=== PATIENT | female | born 1950 | race Caucasian/White ===

== ENCOUNTER 2023-03-18 10:59 | Emergency (ER) | payer MEDICARE, SELFPAY ==
--- NOTE | ~2023-03-18 | XR_ITS ---
EXAMINATION: XR chest 2V DATE: 03/18/2023 11:59 INDICATION: Cough and wheezing and shortness of breath. TECHNIQUE: Frontal and lateral views of the chest were obtained. COMPARISON: None. FINDINGS: There is mild atelectasis in left lower lung zone. No pleural effusion or pneumothorax. The heart size is normal. There are prominent paracardial fat pads. IMPRESSION: 1. Mild atelectasis in left lower lung zone. Reviewed, dictated and finalized at location A.
[2023-03-18 11:20] VITALS: BP 114/82; PULSE 89; RESP 16; TEMP 36.6; O2SAT 95
--- NOTE | 2023-03-18 11:44 | ED.URI ---
HPI - URI/Sore Throat General Chief Complaint: Upper Respiratory Infection Stated Complaint: cough,wheezing Time Seen by Provider: 03/18/23 11:32 Source: patient and RN notes reviewed Mode of arrival: ambulatory Limitations: no limitations History of Present Illness HPI Narrative: Patient presents today complaining of cough x1 +weeks with shortness of breath and postnasal drip. Denies fever. Denies history of asthma or COPD. She does have an albuterol inhaler that she uses occasionally, but states she feels that it was irritating her throat and causing her to cough more. She has also been taking ibuprofen and Robitussin DM. She is a nonsmoker. Related Data Home Medications Medication Instructions Recorded Confirmed albuterol sulfate 90 mcg/actuation 90 mcg inhalation Q4-6H PRN 03/18/23 03/18/23 aerosol inhaler Wheezing carvedilol 3.125 mg tablet 3.125 mg PO DAILY 03/18/23 03/18/23 lisinopril 10 mg tablet 10 mg PO DAILY 03/18/23 03/18/23 pantoprazole 40 mg tablet,delayed 40 mg PO DAILY 03/18/23 03/18/23 release rosuvastatin 40 mg tablet 40 mg PO DAILY 03/18/23 03/18/23 sertraline 100 mg tablet 100 mg PO DAILY 03/18/23 03/18/23 Allergies Allergy/AdvReac Type Severity Reaction Status Date / Time Sulfa (Sulfonamide Allergy Unknown Unknown Verified 03/18/23 11:18 Antibiotics) Review of Systems Review of Systems: CONSTITUTIONAL: Denies body aches, fever, chills, or sweats. EYES: Denies visual changes, redness, or discharge. ENT: Denies rhinorrhea, congestion, sore throat, or otalgia.+ postnasal drip CARDIOVASCULAR: Denies chest pain, palpitations, or edema. RESPIRATORY: + cough, shortness of breath GASTROINTESTINAL: Denies abdominal pain, nausea, vomiting, or diarrhea. GENITOURINARY: Denies dysuria or hematuria. SKIN: Denies rash, itching, or wounds. MUSCULOSKELETAL: Denies back pain, joint pain, or myalgia. NEUROLOGIC: Denies headache, numbness, tingling, or weakness. PSYCH: Denies depression or anxiety. PMFSH Comments At time of signature, I have reviewed and agree with nursing past medical, surgical, social and family history unless otherwise noted. Please see nursing chart for further information. There is no relevant family history pertinent to the presenting complaint Exam Narrative: GENERAL: Well-appearing, well-nourished, and in no acute distress. HEAD: Normocephalic, atraumatic. EYES: EOMI. No redness or drainage. Conjunctivae normal. ENT: Mucous membranes pink and moist. Nares clear. No rhinorrhea. TMs normal bilaterally. Throat normal. Uvula midline. Voice is slightly hoarse NECK: Normal AROM. Supple. No lymphadenopathy. CHEST: No respiratory distress. Clear to auscultation. Frequent harsh cough noted. HEART: Regular rate and rhythm. No murmur appreciated. Normal peripheral pulses. EXTREMITIES: Normal range of motion. No edema. SKIN: Warm, dry, no rash. Capillary refill normal. Normal skin turgor. NEURO: No focal deficits. Alert and oriented x3. Gait steady. PSYCH: Normal affect. No signs of depression or anxiety. Course Course Level of Care: Express Care Visit Vital Signs Vital signs: Vital Signs Temperature 98 F 03/18/23 11:20 Pulse Rate 89 03/18/23 11:20 Respiratory Rate 16 03/18/23 11:20 Blood Pressure 114/82 03/18/23 11:20 Pulse Oximetry 95 03/18/23 11:20 Temperature 98 F 03/18/23 11:20 Pulse Rate 89 03/18/23 11:20 Respiratory Rate 16 03/18/23 11:20 Blood Pressure 114/82 03/18/23 11:20 Pulse Oximetry 95 03/18/23 11:20 Reviewed. Pt has been instructed to follow up with her PCP regarding her elevated blood pressure today. MDM - URI/Sore Throat MDM Narrative Medical decision making narrative: X-rays negative for pneumonia. Since patient's symptoms have been going on for a week half normal treat her with azithromycin and prednisone. Instructed her to use her albuterol inhaler more frequently if needed for shortness of b
== END 2023-03-18 12:19 | disposition home or self-care (01) ==
PROVIDERS: Emergency Provider Nurse Practitioner; PCP Family Medicine
DX: J40 Bronchitis, not specified as acute or chronic (principal); J06.9 Acute upper respiratory infection, unspecified; I42.9 Cardiomyopathy, unspecified; E78.00 Pure hypercholesterolemia, unspecified; I10 Essential (primary) hypertension; K21.9 Gastro-esophageal reflux disease without esophagitis
CPT/HCPCS: 71046; 99203; G0463

== ENCOUNTER 2024-09-09 17:01 | Emergency (ER) | payer MEDICARE, SELFPAY ==
--- NOTE | ~2024-09-09 | XR_ITS ---
XR ankle LT min 3V DATE: 09/09/2024 17:48 INDICATION: Injury, pain TECHNIQUE: 4 views COMPARISON: None FINDINGS: No fracture or dislocation the ankle or disruption of the ankle mortise is detected. No periosteal reaction or bone destruction. IMPRESSION: No fracture or dislocation Reviewed, dictated and finalized at location A. [employer] IMPRESSION: No fracture or dislocation
--- NOTE | ~2024-09-09 | XR_ITS ---
[id number] DATE: 09/09/2024 17:48 INDICATION: Injury, pain TECHNIQUE: AP and crosstable lateral views of left knee COMPARISON: None FINDINGS: No fracture or dislocation or joint effusion. Joint spaces are well preserved. No periostea l reaction or bone destruction. No radiopaque intra-articular loose body or chondrocalcinosis. IMPRESSION: Negative left knee Reviewed, dictated and finalized at Location [facility]. Reviewed, dictated and finalized at location A. [employer] IMPRESSION: Negative left knee
[2024-09-09 17:13] VITALS: BP 137/81; PULSE 87; RESP 16; TEMP 36.4; O2SAT 96
--- NOTE | 2024-09-09 18:19 | ED_ITS ---
HPI - Extremity Injury (Lower) General Chief Complaint: Extremity Injury, Lower Stated Complaint: Left Leg/Knee Pain/Head Pain Time Seen by Provider: 09/09/24 17:15 Source: patient Mode of arrival: ambulatory Limitations: no limitations History of Present Illness HPI Narrative: 74-year-old female presents with complaint of pain to left knee and left ankle. Patient has swelling and bruising to left ankle. Patient was carrying laundry and tripped stairs and fell and landing area. Denies LOC. pain worse when bearing weight on to left ankle. All systems reviewed and negative except as noted above. Related Data Home Medications Medication Instructions Recorded Confirmed albuterol sulfate 90 mcg/actuation 90 mcg inhalation Q4-6H PRN 03/18/23 09/09/24 aerosol inhaler Wheezing carvedilol 3.125 mg tablet 3.125 mg PO DAILY 03/18/23 09/09/24 lisinopril 10 mg tablet 10 mg PO DAILY 03/18/23 09/09/24 pantoprazole 40 mg tablet,delayed 40 mg PO DAILY 03/18/23 09/09/24 release rosuvastatin 40 mg tablet 40 mg PO DAILY 03/18/23 09/09/24 sertraline 100 mg tablet 100 mg PO DAILY 03/18/23 09/09/24 Allergies Allergy/AdvReac Type Severity Reaction Status Date / Time Sulfa (Sulfonamide Allergy Unknown Unknown Verified 09/09/24 17:54 Antibiotics) Review of Systems Review of Systems: CONSTITUTIONAL: Denies fever, chills, or sweats. EYES: Denies visual changes, redness, or discharge. ENT: Denies rhinorrhea, congestion, sore throat, or otalgia. CARDIOVASCULAR: Denies chest pain, palpitations, or edema. RESPIRATORY: Denies cough or dyspnea. GASTROINTESTINAL: Denies abdominal pain, nausea, vomiting, or diarrhea. GENITOURINARY: Denies dysuria or hematuria. SKIN: Denies rash or itching. MUSCULOSKELETAL: Denies back pain or myalgia. Reports pain to left knee and left ankle with swelling. NEUROLOGIC: Denies headache, numbness, or weakness. PSYCHIATRIC: Denies anxiety or depression. All other systems reviewed are negative, except as documented in HPI. [facility] Comments At time of signature, agree with nursing past medical, surgical, social and family history. There is no relevant family history pertinent to the presenting complaint. Exam Narrative: GENERAL: This is a well-nourished, well-developed patient, in no apparent distress. HEAD: normocephalic, atraumatic. EYES: PERRL. Sclera clear/white. Vision is grossly intact. EARS: External ears normal NOSE: External nose normal NECK: Neck supple, non-tender without lymphadenopathy, masses or thyromegaly. CARDIOVASCULAR: Regular rate and rhythm without murmurs, gallops, or rubs. RESPIRATORY: Clear to auscultation. Breath sounds equal bilaterally. No wheezes, rales, or rhonchi. SKIN: warm, Dry, intact with no suspicious lesions or rash, good texture and turgor. NEURO: awake, alert, and oriented to person, place and time. There were no obvious focal neurologic abnormalities. EXTREMITIES: tenderness to anterior aspect L knee. no swelling or deformity. ROM intact. tenderness to lateral and medial aspect L ankle, bruising and swelling to lateral aspect. ROM decreased, distal NV intact. Course Course Level of Care: Express Care Visit Vital Signs Vital signs: Vital Signs Temperature 36.4 C 09/09/24 17:13 Pulse Rate 87 09/09/24 17:13 Respiratory Rate 16 09/09/24 17:13 Blood Pressure 137/81 09/09/24 17:13 Pulse Oximetry 96 09/09/24 17:13 Temperature 36.4 C 09/09/24 17:13 Pulse Rate 87 09/09/24 17:13 Respiratory Rate 16 09/09/24 17:13 Blood Pressure 137/81 09/09/24 17:13 Pulse Oximetry 96 09/09/24 17:13 Reviewed MDM - Extremity Injury (Lower) MDM Narrative Medical decision making narrative: Knee and left ankle x-ray negative for fracture. Discussed results with patient. Jose wrap placed to left knee and left ankle. Recommend rest, elevation, ice, compression. Recommend Tylenol every 6-8 hours. Recommend follow-up with primary care physician in the next 2-3 weeks if pain is not improving. Patient is aware of diagnosis, understands and agrees to treatment plan. Anticipatory guidance given. Patient agrees to follow-up as directed and is aware of reasons to seek care at the emergency department. Portions of this record may have been created with voice recognition software Differential Diagnosis Differential diagnosis: Likely ankle sprain and strain and other (Left knee contusion, left knee sprain, left ankle fracture) Imaging Data My impression: Agree with radiologist Radiologist's impression: XR ankle LT min 3V DATE: 09/09/2024 17:48 INDICATION: Injury, pain TECHNIQUE: 4 views COMPARISON: None FINDINGS: No fracture or dislocation the ankle or disruption of the ankle mortise is detected. No periosteal reaction or bone destruction. IMPRESSION: No fracture or dislocation Discharge Plan Discharge Clinical Impression: Contusion of knee, left Qualifiers: Encounter type: initial encounter Qualified Code(s): S80.02XA - Contusion of left knee, initial encounter Left ankle sprain Qualifiers: Encounter type: initial encounter Involved ligament of ankle: unspecified ligament Qualified Code(s): S93.402A - Sprain of unspecified ligament of left ankle, initial encounter Patient Disposition: Home, Self-Care Condition: Stable Instructions: Ankle Sprain (ED) Additional Instructions: The x-ray of your left ankle and left knee were negative for fracture. Take Tylenol every 6-8 hours as needed for pain. Elevate when at rest. Apply ice as needed for pain. Wear Jose wrap to compress swelling and provide support. Avoid activities that increase pain to left knee and left ankle. Follow-up with your doctor if pain is not improving. Prescriptions: No Action sertraline 100 mg tablet 100 mg PO DAILY carvedilol 3.125 mg tablet 3.125 mg PO DAILY pantoprazole 40 mg tablet,delayed release (DR/EC) 40 mg PO DAILY lisinopril 10 mg tablet 10 mg PO DAILY albuterol sulfate 90 mcg/actuation HFA aerosol inhaler 90 mcg INHALATION Q4-6H PRN (Reason: Wheezing) rosuvastatin 40 mg tablet 40 mg PO DAILY Follow-up/Referrals: Mychal,MD Quinn [Primary Care Provider] - Time of Disposition: 18:24
== END 2024-09-09 18:39 | disposition home or self-care (01) ==
PROVIDERS: Emergency Provider Nurse Practitioner Family; PCP Family Medicine
DX: S80.02XA Contusion of left knee, initial encounter (principal); W10.9XXA Fall (on) (from) unspecified stairs and steps, initial encounter; S93.402A Sprain of unspecified ligament of left ankle, initial encounter; I42.9 Cardiomyopathy, unspecified; E78.00 Pure hypercholesterolemia, unspecified; I10 Essential (primary) hypertension; K21.9 Gastro-esophageal reflux disease without esophagitis
CPT/HCPCS: 73560; 73610; 99214; G0463

== ENCOUNTER 2025-01-10 10:07 | Outpatient (CLI) | payer MEDICARE, SELFPAY ==
--- NOTE | ~2025-01-10 | MR_ITS ---
EXAMINATION: MR brain/brain stem wo con DATE: 01/10/2025 11:32 INDICATION: Dizziness. TECHNIQUE: Magnetic resonance imaging (MRI) of the brain and brainstem was performed without intraven ous contrast. COMPARISON: None. FINDINGS: There are scattered areas of nonspecific increased T2-weighted signal intensity in the cere bral white matter, which is within normal limits for the patient's age. There is no intracranial hemo rrhage, acute infarction, or abnormal intracranial mass lesion. The ventricles are normal in size. Th e orbits are normal. The paranasal sinuses are clear. The mastoid air cells are normal. IMPRESSION: 1. Normal aging brain. Reviewed, dictated and finalized at location A. IMPRESSION: 1. Normal aging brain.
--- OUTSIDE RECORDS SUMMARY | 2025-01-10 11:31 | XMS_ITS | Clinical Summary ---
Author Organization [facility] Address [address] [place] [address] Care Team Providers Care Engineering Operator Name Role Phone Quinn Horta MD Primary Care Provider Mainor Julian MD Unavailable [phone] Edna Lemus MD Unavailable Allergies Active Allergy Reactions Criticality Noted Date Comments Shellfish Containing Products Diarrhea,Vomiting Low 10/31/2018 Sulfa (Sulfonamide Antibiotics) Hives,Shortness of breath,Redness High 10/31/2018 shaky Medications sertraline (ZOLOFT) 100 mg tablet 10/25/2018 Active carvedilol (COREG) 3.125 mg tablet Take 1 tablet (3.125 mg total) by mouth 2 (two) times a day with meals Active lisinopril (PRINIVIL,ZESTR IL) 10 mg tablet Take 1 tablet (10 mg total) by mouth daily Active calcium carbonate-vitam in D3 (CALTRATE 600 + D) 1500 mg (600 mg elemental) -400 units per tablet Take 1 tablet by mouth daily Active aspirin 81 mg tablet Take 1 tablet (81 mg total) by mouth daily Active pantoprazole DR (PROTONIX) 40 mg EC tablet Take 1 tablet (40 mg total) by mouth daily Active rosuvastatin (CRESTOR) 40 mg tablet Take 1 tablet (40 mg total) by mouth daily 11/11/2021 Active loperamide (IMODIUM A-D) 2 mg tablet Take 1 tablet (2 mg total) by mouth 4 (four) times a day as needed for diarrhea Active bacillus coagulans-inuli n (Probiotic with Prebiotic) 1 billion-250 cell-mg capsule Take 1 capsule by mouth Allign Active Active Problems Problem Noted Date Diagnosed Date Diarrhea 07/30/2021 Assessment & Plan (01/14/2022 10:07 AM CDT): Worsening diarrhea. May be due to IBS versus microscopic colitis. There is family history of Crohn's disease. I will recommend colonoscopy with random biopsies. The pathology is benign, for the issue being treated for IBS is possibly with rifaximin or Viberzi. The plan was discussed with the patient's daughter who accompanied her for the visit. Assessment & Plan (07/31/2021 2:50 PM CDT): Worsening. May be related to irritable bowel syndrome. Microscopic colitis possibly related to sertraline was also considered. C diff toxin associated colitis as well as infectious colitis considered. Week obtain stools for C diff toxin assay as well as culture. She was advised to avoid taking Zoloft for 2 weeks and keep a journal of her symptoms and food intake. If symptoms persist then she will be recommended to have colonoscopy with random biopsies. Belching symptom 07/30/2021 Assessment & Plan (01/14/2022 10:03 AM CDT): Symptoms persist depending on type of food she consumes and alcohol. Counseled about diet. Assessment & Plan (07/31/2021 2:51 PM CDT): Persistent. Likely due to esophageal reflux disease, gas. She was counseled about her diet and specifically advised to cut down on excessive green vegetables, dairy products and carbonated beverages. Therapeutic trial of Neurontin 100 mg t.i.d. Check H pylori stool antigen. 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 Assessment & Plan (07/31/2021 2:50 PM CDT): The patient's most recent colonoscopy was in 2019 revealed no residual lesion. Since the original tumor was less than 2 cm and was completely removed, no additional surveillance is indicated at this time. This plan of care was discussed with the patient and her daughter the agreed and verbalized understanding. Benign carcinoid tumor of the rectum 12/01/2018 Overview (12/01/2018): Added automatically from request for surgery [id number] Primary malignant neuroendocrine tumor of rectum 12/01/2018 Overview (12/01/2018): Added automatically from request for surgery [id number] Epigastric pain 11/30/2018 Assessment & Plan (11/30/2018 9:11 PM POLYSTYRENE MOLDING MACHINE TENDER): Symptomatic. Likely due to gastroesophageal reflux disease although peptic ulcer disease cannot be entirely ruled out. Continue PPI. Esophagogastroduodenoscopy is recommended for further evaluation. Gastroesophageal reflux disease 11/30/2018 Assessment & Plan (11/30/2018 9:11 PM POLYSTYRENE MOLDING MACHINE TENDER): Symptomatic. Patient was counseled about lifestyle modifications including eating habits, avoidance of fatty foods, elevation of head of bed. Esophagogastroduodenoscopy is recommended and scheduled. Patient was advised to continue proton pump inhibitor. Benign carcinoid tumor of rectum 11/30/2018 Primary malignant neuroendocrine neoplasm of rec erendira 10/25/2018 Assessment & Plan (11/30/2018 9:19 PM POLYSTYRENE MOLDING MACHINE TENDER): Newly diagnosed. Found on routine colonoscopy. Repeat Flexible sigmoidoscopy with narrow band image revealed few spots that were biopsied and benign. 5HIAA level is pending. Chromoganin A level is high (654), which may be related to PPI use and other factors. Plan Colonoscopy and EGD are recommended. F/U urinary 5HIAA levels. Care plan discussed with daughter. They both asked lots of questions regarding the diagnosis and prognosis. I reassured the patient that typically the rectal neuroendocrine tumors have better prognosis compared to the jejunal lesions. Total time spent for the visit was 45 min and greater than 50% of THE time was spent on counseling and discussing the disease diagnosis modalities, prognosis and required follow-up Immunizations Immunization Administration Dates Next Due Influenza, Quadrivalent, Hig h Dose, Preservative Free, Intrr 09/04/2020 Influenza, Quadrivalent, Split, Intramuscular ,08/05/2017 Influenza, Trivalent, High D ose, Split, Preservative Free, Intramuscular 09/04/2019 Moderna SARS-CoV-2 Monovalent Vaccination (12+ Y RS) 01/17/2021,12/20/2020 Pneumococcal Polysaccharide PPV23 09/04/2020 TD Preservative Free 11/08/2016 Surgical History Surgery Date Site/Laterality Comments CARDIAC CATHETERIZATION OTHER SURGICAL HISTORY exploratory laparotomy APPENDECTOMY COLONOSCOPY last screening , high risk colon CA COLONOSCOPY 12/17/2019 - 01/16/2020 COLONOSCOPY 02/19/2022 last screening 2019, change in bowel habits Medical History Medical History Date Comments Anxiety CHF (congestive heart failure) (HCC) Hypertension Hypercholesteremia GERD (gastroesophageal reflux disease) Osteopenia Arthritis Family History Medical History Relation Name Comments Asthma Brother lung cancer Cancer Brother lung cancer Heart disease Brother lung cancer Stroke Brother lung cancer COPD Sister Diabetes Sister Heart disease Sister Relation Name Status Comments Brother lung cancer Sister Social History Tobacco Use Types Packs/Day Years Used Date Smoking Tobacco: Never Smokeless Tobacco: Never Alcohol Use Standard Drinks/Week Comments Yes 7 (1 standard drink = 0.6 oz pur e alcohol) weekly AUDIT-C Answer Date Recorded Q1: How often do you have a drink containing alc ohol? 2-4 times a month 02/19/2022 Q2: How many drinks containi ng alcohol do you have on a typical day when you are drinking? 1 or 2 02/19/2022 Q3: How often do you have si x or more drinks on one occasion? Never 02/19/2022 PHQ-2 Answer Date Recorded PHQ-2 Total Score (If total score is 3 or more points, staff should administer the PHQ-9) 0 07/30/2021 Personal Safety Answer Date Recorded Getting School Help Needed Not on file 10/02 Comments No Sex and Gender Information Value Date Recorded Sex Assigned at Not on file Legal Sex Female 12:01 PM POLYSTYRENE MOLDING MACHINE TENDER Gender Identity Not on file Sexual Orientation Not on file Obstetrics History Last Filed Vital Signs Vital Sign Reading Time Taken Comments Blood Pressure 140/83 09/07/2022 10:24 AM POLYSTYRENE MOLDING MACHINE TENDER Pulse 67 09/07/2022 10:24 AM POLYSTYRENE MOLDING MACHINE TENDER Temperature 36.4 C (97.6 F) 09/07/2022 10:24 AM POLYSTYRENE MOLDING MACHINE TENDER Respiratory Rate 20 09/07/2022 10:24 AM POLYSTYRENE MOLDING MACHINE TENDER Oxygen Saturation 96% 09/07/2022 10:24 AM POLYSTYRENE MOLDING MACHINE TENDER Inhaled Oxygen Concentration - - Weight 68 kg (150 lb) 06/06/2024 8:36 AM CDT Height 152.4 cm (5') 06/06/2024 8:36 AM CDT Body Mass Index 29.29 06/06/2024 8:36 AM CDT Plan of Treatment Health Maintenance Due Date Last Done Comments Fall Risk Assessment 1950 Hepatitis C Screening 1950 Hepatitis B Screening 1966 Zoster Vaccine (1 of 2) 1998 Well Visit 65+ 2013 DTaP/Tdap/Td Vaccine (1 - Tdap) 11/09/2016 7 Pneumococcal vaccine 65+ (2 of 2 - PCV) 09/04/2021 09/04/2020 Depression Screening 07/30/2022 07/30/2021, 11/30/19 19 Covid-19 Vaccine (3 - 2023-2 5 season) 2024 01/17/2021, 12/20/2020 Influenza Vaccine (#1) 2024 , 09/04/2019, 08/05/2018, Additional history exists Osteoporosis Screening-Bone Density Scan 11/17/2025 11/17/2023 Colon Cancer Screening-CT Colonography Discontinued 02/19/2022, 12/25/2019, 01/02/2019 Colon Cancer Screening-Colonoscopy Discontinued 02/19/2022, 12/25/2019, 01/02/2019 Colon Cancer Screening-DNA Stool Discontinued 02/19/2022, 12/25/2019, 01/02/2019 Colon Cancer Screening-FIT Discontinued 02/19, 12/25/2019, 01/02/2019 Colon Cancer Screening-FOBT Discontinued 02/2022, 12/25/2019, 01/02/2019 Colon Cancer Screening-Sigmoidoscopy Discontinued 02/19/2022, 12/25/2019, 01/02/2019 Colorectal Cancer Screening Discontinued Breast Cancer Screening-Mammogram Discontinued 11/17/2023, 11/17/2023, 09/25/2022, Additional history exists Procedures Procedure Name Priority Date/Time Associated Diagnosis Comments COLONOSCOPY 02/19/2022 7:59 AM CDT from Last 3 Months or Most Recently Relevant to Health Maintenance Results * COLONOSCOPY (02/19/2022 7:59 AM CDT) Anatomical Region Laterality Modality Other Narrative Procedure Note Edna Lemus MD - 02/19/2022 7:59 AM CDT [facility] Endoscopy [facility] Patient Name: Wilda Bourne Procedure Date: 02/19/2022 7:59 AM Date of : 1950 Admit Type: Outpatient Age: 71 Gender: Female Note Status: Finalized Attending MD: Edna Lemus M.D. Procedure Date: 02/19/2022 Procedure: Colonoscopy Indications: Chronic diarrhea, Malignant carcinoid tumor of the rectum Providers: Edna Lemus M.D., Anya Root (Anesthesia Staff), Gloria Rojo RN Referring MD: Quinn Horta M.D. Medicines: Monitored Anesthesia Care Complications: No immediate complications. Estimated Blood Loss: Estimated blood loss was minimal. Procedure: Pre-Anesthesia Assessment: - Prior to the procedure, a History and Physicalwas performed, and patient medications and allergieswere reviewed. The patient is competent. The risks and benefits of the procedure and the sedation optionsand risks were discussed with the patient. Allquestions were answered and informed consent was obtained. Patient identification and proposed procedure were verified by the physician, the nurse and the clinical trials manager in the procedure room. Mental Status Examination: alert and oriented. AirwayExamination: normal oropharyngeal airway and neck mobility. Respiratory Examination: clear to auscultation. CV Examination: normal. Prophylactic Antibiotics: The patient does not require prophylactic antibiotics. Prior Anticoagulants: The patient has taken no anticoagulant or antiplatelet agents. ASA Grade Assessment: II - A patient with mild systemicdisease. After reviewing the risks and benefits, the patient was deemed in satisfactory condition to undergo the procedure. The anesthesia plan was to use monitored anesthesia care (MAC). Immediately prior to administration of medications, the patient was re-assessed for adequacy to receive sedatives. The heart rate, respiratory rate, oxygen saturations, blood pressure, adequacy of pulmonary ventilation,and response to care were monitored throughout the procedure. The physical status of the patient was re-assessed after the procedure. - The risks and benefits of the procedure and the sedation options and risks were discussed with the patient. All questions were answered and informed consent was obtained. After I obtained informed consent, the scope was passed under direct vision. Throughout theprocedure, the patient's blood pressure, pulse, and oxygen saturations were monitored continuously. The scopewas passed under direct vision. The Colonoscope was introduced through the anus and advanced to the the cecum, identified by appendiceal orifice andileocecal valve. The colonoscopy was performed without difficulty. The patient tolerated the procedurewell. The quality of the bowel preparation was adequate.The bowel preparation used was bisacodyl tablets viasplit dose instruction. Findings: Scattered small and large-mouthed diverticula were found in theentire colon. Normal mucosa was found in the entire colon. Biopsies for histologywere taken with a cold forceps from the descending colon for evaluation of microscopic colitis. Estimated blood loss was minimal. The exam was otherwise without abnormality on direct and retroflexion views. Impression: - Diverticulosis in the entire examined colon. - Normal mucosa in the entire examined colon.Biopsied. - The examination was otherwise normal on directand retroflexion views. Recommendation: - Await pathology results. - Continue present medications. - Repeat colonoscopy in 3 years for surveillance. Procedure Code(s): --- Professional --- 13437, Colonoscopy, flexible; with biopsy, singleor multiple Diagnosis Code(s): --- Professional --- K52.9, Noninfective gastroenteritis and colitis, unspecified C7A.026, Malignant carcinoid tumor of the rectum K57.30, Diverticulosis of large intestine without perforation or abscess without bleeding CPT copyright 2020 [employer]. All rights reserved. The codes documented in this report are preliminary and upon reception reviewmay be revised to meet current compliance requirements. Electronically signed by Edna Lemus M.D. Edna Lemus M.D. 02/19/2022 8:32:27 AM Number of Addenda: 0 Note Initiated On: 02/19/2022 7:59 AM Edna Lemus MD ENDOSCOPY PROCEDURES Fi nal Result from Last 3 Months or Most Recently Relevant to Health Maintenance Insurance MEDICARE [facility] MEDICARE [facility] MEDICARE [facility] Care Teams Engineering Operator Relationship Specialty Start Date End Date Quinn Horta MD PCP - General Family Medicine 09/30/18 Mainor Julian MD Referring Physician Family Medicine 11/21/18 Edna Lemus MD Food Preservation Scientist Gastroenterology 07/09/21
--- OUTSIDE RECORDS SUMMARY | 2025-01-10 11:31 | XMS_ITS | Clinical Summary ---
Author Organization [facility] Address [address] [address] Care Team Providers Care School Bus Inspector Name Role Phone Unavailable Primary Care Provider Unavailabl e Source Comments [facility],non-owned Affiliates and Associated Physician Practices is amultiple site organization consisting of ambulatory clinics and hospital sitesin [place], [place], [place] and [place]. This disclosure is being madepursuant to the Care Everywhere program and may not contain all information available regarding this patient. Last updated 18.[facility] Social History Tobacco Use Types Packs/Day Years Used Date Smoking Tobacco: Never Assessed Sex and Gender Information Value Date Recorded Sex Assigned at Not on file Gender Identity Not on file Sexual Orientation Not on file Plan of Treatment Health Maintenance Due Date Last Done Comments BONE DENSITY TESTING 1950 HEPATITIS C SCREENING 04/14/1966 DTAP/TDAP/TD VACCINES (1 - Tdap) 1967 PNEUMOCOCCAL VACCINE 50+ (1 of 1 - PCV) 1998 ZOSTER VACCINE (1 of 2) 1998 Respiratory Syncytial Virus (RSV) Vaccine Pt: or over 60 yrs (1 - 1-dose 75+ series) 2023 COVID-19 VACCINE ( - 2023-2 5 season) 2024 INFLUENZA VACCINE (#1) 2024 DEPRESSION SCREENING 10/18/2024 HEPATITIS B VACCINE Aged Out No longe r eligible based on patient's age to complete this topic HIB VACCINE Aged Out No longer eligi ble based on patient's age to complete this topic HPV VACCINE Aged Out No longer eligi ble based on patient's age to complete this topic MENINGOCOCCAL (Group B) VACC INE SHARED DECISION-MAKING Aged Out No longer eligibl e based on patient's age to complete this topic MENINGOCOCCAL GROUPS A/C/Y/W VACCINE Aged Out No longer eligible b ased on patient's age to complete this topic
--- OUTSIDE RECORDS SUMMARY | 2025-01-10 11:31 | XMS_ITS | Referral Summary ---
Author Organization [facility] Address [address] [place] [address] Care Team Providers Care Grounds Maintenance Worker Name Role Phone Quinn Horta MD Primary Care Provider [phone] Mainor Julian MD Unavailable [phone] Edna Lemus MD Unavailable Allergies Active Allergy [...] (12/11/2019): Added automatically from request for surgery [id number] Assessment & Plan (01/14/2022 10:11 AM CDT): [...] (12/01/2018): Added automatically from request for surgery [id number] Primary malignant neuroendocrine tumor of rectum 12/01/2018 Overview (12/01/2018): Added automatically from request for surgery [id number] Epigastric pain 11/30/2018 Assessment & Plan (11/30/2018 9:11 PM EXECUTIVE RECRUITER): Symptomatic. Likely due to gastroesophageal reflux disease although peptic ulcer disease cannot be entirely ruled out. Continue PPI. Esophagogastroduodenoscopy is recommended for further evaluation. Gastroesophageal reflux disease 11/30/2018 Assessment & Plan (11/30/2018 9:11 PM EXECUTIVE RECRUITER): Symptomatic. Patient was counseled about lifestyle modifications including eating habits, avoidance of fatty foods, elevation of head of bed. Esophagogastroduodenoscopy is recommended and scheduled. Patient was advised to continue proton pump inhibitor. Benign carcinoid tumor of rectum 11/30/2018 Primary malignant neuroendocrine neoplasm of rec erendira 10/25/2018 Assessment & Plan (11/30/2018 9:19 PM EXECUTIVE RECRUITER): Newly diagnosed. Found on routine colonoscopy. Repeat [...] Polysaccharide PPV23 09/04/2020 TD Preservative Free 11/08/2016 Social History Tobacco Use Types Packs/Day Years [...] on file Legal Sex Female 12:01 PM EXECUTIVE RECRUITER Gender Identity Not on file Sexual Orientation Not on file Last Filed Vital Signs Vital Sign Reading Time Taken Comments Blood Pressure 140/83 09/07/2022 10:24 AM EXECUTIVE RECRUITER Pulse 67 09/07/2022 10:24 AM EXECUTIVE RECRUITER Temperature 36.4 C (97.6 F) 09/07/2022 10:24 AM EXECUTIVE RECRUITER Respiratory Rate 20 09/07/2022 10:24 AM EXECUTIVE RECRUITER Oxygen Saturation 96% 09/07/2022 10:24 AM EXECUTIVE RECRUITER Inhaled Oxygen Concentration - - Weight 68 kg (150 lb) 06/06/2024 8:36 AM CDT Height 152.4 cm (5') 06/06/2024 8:36 AM CDT Body Mass Index 29.29 06/06/2024 8:36 AM CDT Plan of Treatment Not on file Procedures Procedure Name Priority Date/Time Associated Diagnosis Comments COLONOSCOPY 02/19/2022 7:59 AM CDT from Last 3 Months or Most Recently Relevant to Health Maintenance Results * COLONOSCOPY (02/19/2022 7:59 AM CDT) Anatomical Region Laterality Modality Other Narrative Procedure Note Edna Lemus MD - 02/19/2022 7:59 AM CDT [facility] Endoscopy Lab Patient Name: Wilda Bourne Procedure [...] by the physician, the nurse and the staff development educator in the procedure room. Mental Status Examination: [...] for surveillance. Procedure Code(s): --- Professional --- 93255, Colonoscopy, flexible; with biopsy, singleor multiple Diagnosis Code(s): --- Professional --- K52.9, Noninfective gastroenteritis and colitis, unspecified C7A.026, Malignant carcinoid tumor of the rectum K57.30, Diverticulosis of large intestine without perforation or abscess without bleeding CPT copyright 2020 [employer]. All rights reserved. The codes documented in this report are preliminary and upon cytopathologist reviewmay be revised to meet current compliance requirements. Electronically signed by Edna Lemus M.D. Edna Lemus M.D. 02/19/2022 8:32:27 AM Number of Addenda: 0 Note Initiated On: 02/19/2022 7:59 AM Edna Lemus MD ENDOSCOPY PROCEDURES Fi nal Result from Last 3 Months or Most Recently Relevant to Health Maintenance Insurance MEDICARE [facility] MEDICARE [facility] MEDICARE [facility] Care Teams Grounds Maintenance Worker Relationship Specialty Start Date End Date Quinn Horta MD PCP - General Family Medicine 09/30/18 Mainor Julian MD Referring Physician Family Medicine 11/21/18 Edna Lemus MD Retail Marketing Specialist Gastroenterology 07/09/21
--- OUTSIDE RECORDS SUMMARY | 2025-01-10 11:31 | XMS_ITS | Clinical Summary ---
Author Organization [facility] Address [address] [place] [id number] Care Team Providers Care Legal Investigator Name Role Phone Quinn Horta MD Primary Care Provider Family History Medical History Relation Name Comments Breast Cancer Neg Hx Social History Tobacco Use Types Packs/Day Years Used Date Smoking Tobacco: Never Assessed Comments Unknown Sex and Gender Information Value Date Recorded Sex Assigned at Not on file Legal Sex Female 6:08 AM BYPRODUCTS EXTRACTOR Gender Identity Not on file Sexual Orientation Not on file Occupation Industry Job Start Date Job End Date Not on file Not on file Not on file Not on file Plan of Treatment Health Maintenance Due Date Last Done Comments DTAP/TDAP/TD VACCINES (1 - Tdap) 1967 PNEUMOCOCCAL VACCINE 50+ YEARS (1 of 1 - PCV) 04/18/19 98 ZOSTER VACCINE (1 of 2) 1998 OSTEOPOROSIS SCREENING 2013 RSV VACCINE (60+ or ) (1 - 1-dose 75+ series) 2023 INFLUENZA VACCINE (#1) 2024 Insurance [facility] BLUE ACCESS/TRUE BLUE PPO Care Teams Legal Investigator Relationship Specialty Start Date End Date Quinn Horta MD [address] [place] [id number] PCP - General Family Practice 02/23/12
== END 2025-01-10 10:08 | disposition home or self-care (01) ==
LOC: ANHIMG 10:15
PROVIDERS: PCP Family Medicine; Visit Provider Physician Assistant
DX: R42 Dizziness and giddiness (principal)
CPT/HCPCS: 70551